=== PATIENT | male | born 1970 | race Hispanic/Latino ===

== ENCOUNTER 2021-07-31 17:50 | Emergency (ER) | payer SELFPAY ==
[2021-07-31] MEDS ORDERED: Fluorescein Opthalmic Strip ONE (17:57)
[2021-07-31] MEDS ORDERED: Proparacaine 0.5% Opth 15 ML BOT ONE (17:57)
== END 2021-07-31 18:40 | disposition home or self-care (01) ==
LOC: ERS 17:50
DX: S05.01XA Injury of conjunctiva and corneal abrasion without foreign body, right eye, initial encounter (principal); E11.9 Type 2 diabetes mellitus without complications
CPT/HCPCS: 99283